=== PATIENT | male | born 1960 | race Caucasian/White ===

== ENCOUNTER → 2017-04-23 | Emergency (ER) | payer OTHER ==
[~2017-04-23] VITALS: Ht 180.3 cm; Wt 104.3 kg
[~2017-04-23] MED LIST: ADULT ASPIRIN81 MG; TERAZOSIN HCL5 MG
== END | disposition left against medical advice (07) ==
LOC: ER 16:48
DX: Z53.20 Procedure and treatment not carried out because of patient's decision for unspecified reasons (principal)